=== PATIENT | male | born 1990 | race Caucasian/White ===

== ENCOUNTER 2019-06-14 09:24 | Emergency (ER) | payer MEDICAID ==
[~2019-06-14] VITALS: Ht 180.3 cm; Wt 84.0 kg
[2019-06-14 09:49] LABS: CLARITY,URINE SLIGHTLY CLOUDY (Clear); COLOR,URINE AMBER (Yellow); GLUCOSE, URINE NEGATIVE (Neg); KETONES,URINE NEGATIVE (Neg); LEUKOCYTE ESTERASE ,URINE NEGATIVE (Neg); NITRITES, URINE NEGATIVE (Neg); OCCULT BLOOD,URINE NEGATIVE (Neg); PH,URINE 6.5 (4.8-8.0); PROTEIN,URINE 30 mg/dl (Neg); UA COLLECTION TYPE CLN CATCH MIDSTREAM
[2019-06-14 09:57] LABS: BASOPHILS % (AUTO) 0.3 % (0-1); EOSINOPHILS % (AUTO) 0.1 % (0-6); LYMPHOCYTES # (AUTO) 1.8 X10'3 (1.1-4.8); WHITE BLOOD COUNT 13.8 X10'3 (4.5-11.0)
[2019-06-14 09:59] LABS: HEMATOCRIT 48.3 % (42.0-52.0); LYMPHOCYTES % (AUTO) 12.8 % (21-51); MEAN CORPUSCULAR HEMOGLOBIN 31.4 PG (27.0-31.0); MEAN CORPUSCULAR HGB CONC 35.2 g/dL (33.0-36.5); MEAN CORPUSCULAR VOLUME 89.3 FL (78-98); NEUTROPHILS % (AUTO) 79.8 % (42-75); PLATELET COUNT 240 X10'3 (140-440); RED BLOOD COUNT 5.41 X10'6 (4.70-6.10); RED CELL DISTRIBUTION WIDTH 12.5 % (11.5-14.5)
[2019-06-14 10:01] LABS: SQUAMOUS EPITHELIAL CELL,UR FEW /LPF (FEW)
[2019-06-14 10:02] LABS: MUCUS STRANDS MANY /LPF (Neg)
[2019-06-14 10:03] LABS: BACTERIA,URINE 2+ /HPF (Neg); RBC,URINE NONE SEEN /HPF (0-2)
[2019-06-14 10:05] LABS: FINE GRANULAR CAST 0-3 /LPF (NEGATIVE); HYALINE CASTS 0-3 /LPF (NEGATIVE)
[2019-06-14 10:06] LABS: ALANINE AMINOTRANSFERASE 26 U/L (12-78); ALBUMIN 4.6 G/DL (3.4-5.0); ALBUMIN/GLOBULIN RATIO 1.2 (1.1-1.5); ALKALINE PHOSPHATASE 81 IU/L (46-116); ANION GAP 14 (8-16); ASPARTATE AMINO TRANSFERASE 23 U/L (10-37); BILIRUBIN,TOTAL 0.6 MG/DL (0.1-1.0); BLOOD UREA NITROGEN 12 MG/DL (7-18); BUN/CREATININE RATIO 10.2 (5.4-32.0); CALCIUM 9.7 MG/DL (8.5-10.1); CHLORIDE 103 MMOL/L (99-107); CREATININE 1.18 MG/DL (0.60-1.10); GLUCOSE 128 MG/DL (70-104); LIPASE 159 U/L (73-393); POTASSIUM 3.6 MMOL/L (3.5-5.1); SODIUM 142 MMOL/L (135-145); TOTAL CARBON DIOXIDE 25.4 MMOL/L (24-32); TOTAL PROTEIN 8.4 G/DL (6.4-8.2); eGFR 72 ML/MIN
[2019-06-14 10:27] LABS: LARGE PLATELETS FEW; PLATELET ESTIMATE NORMAL
[2019-06-14] MEDS ORDERED: haloperidol lactate 5mg/ml inj IM ONE (11:20)
[2019-06-14] MEDS ORDERED: diphenhydrAMINE 50 mg/ml inj IM ONE (11:20)
[2019-06-14] MEDS ORDERED: ondansetron 4mg rapidly disintigrating tab PO ONE (11:20)
[2019-06-14] MEDS ORDERED: proCHLORperazine 10 MG/2 ml inj IM ONE (11:20)
[2019-06-14] MEDS ORDERED: diphenhydrAMINE 50 mg/ml inj IV ONE (11:25)
[2019-06-14] MEDS ORDERED: proCHLORperazine 10 MG/2 ml inj IV ONE (11:25)
[2019-06-14] MEDS ORDERED: PROM25TA14 PO (11:28)
--- NOTE | 2019-06-14 11:41 | NUR ---
pt medication asper md orders administred to the pt ,ex at bedside.
--- NOTE | 2019-06-14 13:07 | NUR ---
PT DRANK A FULL CUP OF WATER
[2019-06-14] MEDS ORDERED: SUCR1TAB34 PO (13:16)
[2019-06-14] MEDS ORDERED: haloperidol 5mg tablet PO ONE (13:20)
[2019-06-14 13:29] VITALS: BP 150/70
== END 2019-06-14 13:31 | disposition home or self-care (01) ==
LOC: ER 09:24
DX: G43.A1 Cyclical vomiting, in migraine, intractable (principal); F12.90 Cannabis use, unspecified, uncomplicated; F15.90 Other stimulant use, unspecified, uncomplicated; F11.90 Opioid use, unspecified, uncomplicated; F14.90 Cocaine use, unspecified, uncomplicated; F17.200 Nicotine dependence, unspecified, uncomplicated; Z79.899 Other long term (current) drug therapy
CPT/HCPCS: 36415; 71045; 80053; 81001; 83690; 85025; 85610; 87088; 93005; 96372; 96374; 96375; 99284; J0780; J1200; J1630

== ENCOUNTER 2020-04-06 18:00 | Emergency (ER) | payer MEDICAID ==
[~2020-04-06] VITALS: Ht 180.3 cm; Wt 90.0 kg
[~2020-04-06 18:00] MED LIST: PROM25TA14 PO; SUCR1TAB34 PO
--- NOTE | 2020-04-06 18:29 | NUR ---
pt states he can't provide a urine test d/t "throwing up all night"
[2020-04-06 18:59] LABS: BASOPHILS % (AUTO) 0.2 % (0-1); EOSINOPHILS % (AUTO) 0 % (0-6); HEMOGLOBIN 16.4 g/dl (14.0-17.9); LYMPHOCYTES # (AUTO) 2.1 X10'3 (1.1-4.8); LYMPHOCYTES % (AUTO) 11.4 % (21-51); MEAN CORPUSCULAR HEMOGLOBIN 30.7 PG (27.0-31.0); MEAN CORPUSCULAR HGB CONC 34.9 g/dL (33.0-36.5); MEAN PLATELET VOLUME 11.3 FL (7.4-10.4); MONOCYTES # (AUTO) 1.3 X10'3 (0-0.9); MONOCYTES % (AUTO) 7.1 % (2-12); NEUTROPHILS # (AUTO) 15.2 X10'3 (1.8-7.7); NEUTROPHILS % (AUTO) 81.3 % (42-75); PLATELET COUNT 222 X10'3 (140-440); RED BLOOD COUNT 5.34 X10'6 (4.70-6.10); RED CELL DISTRIBUTION WIDTH 12.6 % (11.5-14.5); WHITE BLOOD COUNT 18.7 X10'3 (4.5-11.0)
[2020-04-06 19:11] LABS: ALANINE AMINOTRANSFERASE 37 U/L (12-78); ALBUMIN 4.7 G/DL (3.4-5.0); ALBUMIN/GLOBULIN RATIO 1.2 (1.1-1.5); ALKALINE PHOSPHATASE 73 IU/L (46-116); ANION GAP 12 (8-16); ASPARTATE AMINO TRANSFERASE 21 U/L (10-37); BILIRUBIN,TOTAL 0.9 MG/DL (0.1-1.0); BLOOD UREA NITROGEN 12 MG/DL (7-18); BUN/CREATININE RATIO 9.2 (5.4-32.0); CALCIUM 9.6 MG/DL (8.5-10.1); CHLORIDE 103 MMOL/L (99-107); CREATININE 1.31 MG/DL (0.60-1.10); GLUCOSE 114 MG/DL (70-104); LIPASE 102 U/L (73-393); POTASSIUM 3.1 MMOL/L (3.5-5.1); SODIUM 141 MMOL/L (135-145); TOTAL PROTEIN 8.5 G/DL (6.4-8.2); eGFR 64 ML/MIN
[2020-04-06] MEDS ORDERED: normal saline 1000ml 1,000 ML IV ONE (19:25)
[2020-04-06] MEDS ORDERED: ondansetron 4mg rapidly disintigrating tab PO ONE (19:30)
[2020-04-06 19:49] LABS: LARGE PLATELETS MODERATE; PLATELET ESTIMATE NORMAL
[2020-04-06] MEDS ORDERED: LIDOcaine Viscous 15ml cup MM STA (19:51)
[2020-04-06] MEDS ORDERED: famotidine 20mg tablet PO ONE (19:55)
[2020-04-06] MEDS ORDERED: mag hydrox/Alum hydrox/simeth 30ml oral suspension PO ONE (19:55)
[2020-04-06] MEDS ORDERED: normal saline 1000ML IV soln IVB ONE (20:00)
--- NOTE | 2020-04-06 20:17 | NUR ---
relieving RN for break, pt is resting quietly on gurney, 2nd liter NS infusing w/o,
[2020-04-06] MEDS ORDERED: baclofen 10mg tablet PO STA (21:10)
[2020-04-06 21:32] LABS: CLARITY,URINE CLEAR (Clear); COLOR,URINE AMBER (Yellow); GLUCOSE, URINE NEGATIVE (Neg); KETONES,URINE 15 mg/dl (Neg); LEUKOCYTE ESTERASE ,URINE NEGATIVE (Neg); NITRITES, URINE NEGATIVE (Neg); OCCULT BLOOD,URINE NEGATIVE (Neg); PH,URINE 8.5 (4.8-8.0); PROTEIN,URINE 30 mg/dl (Neg)
[2020-04-06 21:41] LABS: UA COLLECTION TYPE CLN CATCH MIDSTREAM
[2020-04-06 21:46] LABS: BACTERIA,URINE NONE SEEN /HPF (Neg); MUCUS STRANDS MODERATE /LPF (Neg); RBC,URINE NONE SEEN /HPF (0-2)
[2020-04-06 21:47] LABS: SQUAMOUS EPITHELIAL CELL,UR FEW /LPF (FEW)
[2020-04-06] MEDS ORDERED: SUCR1TAB34 PO (21:47)
[2020-04-06] MEDS ORDERED: PROM25TA14 PO (21:47)
[2020-04-06 21:56] VITALS: BP 131/80
== END 2020-04-06 21:59 | disposition home or self-care (01) ==
LOC: ER 18:01
DX: R11.2 Nausea with vomiting, unspecified (principal); R50.9 Fever, unspecified; R10.84 Generalized abdominal pain; F17.200 Nicotine dependence, unspecified, uncomplicated; F12.90 Cannabis use, unspecified, uncomplicated; Z79.899 Other long term (current) drug therapy
CPT/HCPCS: 36415; 80053; 81001; 83690; 85025; 87088; 96360; 99285; J7030

== ENCOUNTER 2020-07-23 16:40 | Emergency (ER) | payer MEDICAID ==
[~2020-07-23] VITALS: Ht 185.4 cm; Wt 90.0 kg
[2020-07-23 16:55] VITALS: BP 140/86
[2020-07-23] MEDS ORDERED: sucralfate 1 gm tablet PO ONE (17:30)
[2020-07-23] MEDS ORDERED: pantoprazole 40mg Tablet.DR PO ONE (17:30)
[2020-07-23] MEDS ORDERED: SUCR1TAB PO (17:34)
[2020-07-23] MEDS ORDERED: PANT-47 PO (17:34)
== END 2020-07-23 17:45 | disposition home or self-care (01) ==
LOC: ER 16:41
DX: Z13.89 Encounter for screening for other disorder (principal); R10.84 Generalized abdominal pain; R11.10 Vomiting, unspecified; F12.90 Cannabis use, unspecified, uncomplicated; Z79.899 Other long term (current) drug therapy
CPT/HCPCS: 99283